=== PATIENT | male | born 1950 | race Caucasian/White ===

== ENCOUNTER 2017-11-25 10:33 | Day surgery (SDC) | payer MEDICARE, OTHER ==
[~2017-11-25 10:33] MED LIST: CEFAZOLIN 2 Gram 2 GM/50 ML BAG IVPB ONE; CELECOXIB 100 MG CAPSULE PO ONE; FAMOTIDINE 20MG TABLET PO ONE; MECLIZINE 25 MG TABLET PO ONE; METOCLOPRAMIDE 10 MG TABLET PO ONE; VANCOMYCIN HCL 1,000 MG in DEXTROSE 5 % IN WATER 250 ML IVPB ONE
[2017-11-25] MEDS ORDERED: MIDAZOLAM HCL 2MG/2ML VIAL IV ONE (10:34)
[2017-11-25] MEDS ORDERED: ROPIVACAINE HCL (NAROPIN) /PF 5MG/ML 20ML VIAL IV ONE ×2 (10:34)
[2017-11-25] MEDS ORDERED: ONDANSETRON HCL IV 4 MG/2 ML VIAL IVP ONE (10:34)
[2017-11-25] MEDS ORDERED: KETOROLAC 30 MG/ML VIAL IVP ONE (10:34)
[2017-11-25] MEDS ORDERED: LIDOCAINE 2% MDV (20MG/ML) 20ML VIAL IV ONE (10:34)
[2017-11-25] MEDS ORDERED: MORPHINE SULFATE 10 MG/ML VIAL IVP ONE (10:34)
[2017-11-25] MEDS ORDERED: TRANEXAMIC ACID 1,000 MG/10 ML ML IV ONE (10:34)
[2017-11-25] MEDS ORDERED: DEXAMETHASONE 4 MG/ML 1ML VIAL IVP ONE ×2 (10:34)
[2017-11-25] MEDS ORDERED: BUPIVACAINE 0.5% W/EPI MPF 30 ML VIAL IVP ONE (10:34)
[2017-11-25] MEDS ORDERED: PROPOFOL 10 MG/ML VIAL IV ONE (10:34)
[2017-11-25 11:32] LABS: ABO GROUP O; ANTIBODY SCREEN NEGATIVE (NEGATIVE); RH TYPE NEGATIVE
[2017-11-25] MEDS ORDERED: ACETAMINOPHEN 325 MG TAB PO PRN (16:25)
[2017-11-25] MEDS ORDERED: HYDROMORPHONE HCL 2 MG/ML VIAL IM PRN (16:25)
[2017-11-25] MEDS ORDERED: KETOROLAC 30 MG/ML VIAL IVP PRN ×2 (16:25)
[2017-11-25] MEDS ORDERED: HYDROCODONE/APAP 10/325 TABLET PO PRN (16:25)
[2017-11-25] MEDS ORDERED: DIPHENHYDRAMINE HCL 25 MG CAPSULE PO PRN (16:25)
[2017-11-25] MEDS ORDERED: TRAMADOL HCL 50 MG TABLET PO PRN (16:25)
[2017-11-25] MEDS ORDERED: ACETAMINOPHEN W/ CODEINE 300MG/60MG TABLET PO PRN ×2 (16:25)
[2017-11-25] MEDS ORDERED: AL HYDROX/MAG HYDROX 30ML UD PO PRN (16:25)
[2017-11-25] MEDS ORDERED: ZOLPIDEM TARTRATE 5 MG TABLET PO PRN (16:25)
[2017-11-25] MEDS ORDERED: MAGNESIUM HYDROXIDE 30 ML UDC PO PRN (16:25)
[2017-11-25] MEDS ORDERED: BISACODYL 10 MG SUPP RC PRN (16:25)
[2017-11-25] MEDS ORDERED: ONDANSETRON HCL IV 4 MG/2 ML VIAL IVP PRN (16:25)
[2017-11-25] MEDS ORDERED: NALOXONE 0.4 MG/1 ML VIAL IVP PRN (16:25)
[2017-11-25] MEDS: HUMULIN R 100 UNIT/ML VIAL SQ SCH (18:04)
[2017-11-25] MEDS: POTASSIUM CHLORIDE/D5-0.9%NACL 20 MEQ/1,000 ML BAG IV SCH ×2 (18:05→19:50)
[2017-11-25] MEDS: NOVOLOG FLEXPEN (INSULIN ASPART) 100 UNITS/ML SQ SCH (18:23)
[2017-11-25] MEDS: HYDROCODONE/APAP 10/325 TABLET PO PRN ×2 (19:54→21:04)
[2017-11-25] MEDS: CEFAZOLIN 2 Gram 2 GM/50 ML BAG IVPB SCH (22:04)
[2017-11-25] MEDS: DOCUSATE SODIUM 100 MG CAPSULE PO SCH (22:08)
[2017-11-25] MEDS: LEVEMIR FLEXTOUCH 100 UNIT/ML INSULIN PEN SQ SCH (22:14)
[2017-11-25] MEDS: PATIENT OWN MED: METFORMIN 1000 MG PO SCH (22:23)
[2017-11-25] MEDS: PATIENT OWN MED: OXYBUTYNIN 5 MG PO SCH (22:23)
[2017-11-25] MEDS: SODIUM CHLORIDE NASAL SPRAY PRN (23:53)
[2017-11-26] MEDS: ALBUTEROL SULFATE (0.083%) 2.5 MG/3 ML NEB INH PRN ×2 (00:54→10:53)
[2017-11-26] MEDS: POTASSIUM CHLORIDE/D5-0.9%NACL 20 MEQ/1,000 ML BAG IV SCH ×2 (04:42→10:05)
[2017-11-26] MEDS: CEFAZOLIN 2 Gram 2 GM/50 ML BAG IVPB SCH ×2 (05:07→13:53)
[2017-11-26] MEDS ORDERED: PATIENT OWN MED: OMEPRAZOLE 20 MG PO SCH (07:00)
[2017-11-26 07:04] LABS: HEMOGLOBIN 10.5 gm/dl (14.0-18.0)
[2017-11-26 07:17] LABS: CREATININE 1.5 mg/dL (0.7-1.2)
[2017-11-26] MEDS: NOVOLOG FLEXPEN (INSULIN ASPART) 100 UNITS/ML SQ SCH ×2 (08:10→13:52)
[2017-11-26] MEDS: HUMULIN R 100 UNIT/ML VIAL SQ SCH ×2 (08:11→13:52)
[2017-11-26] MEDS: LEVEMIR FLEXTOUCH 100 UNIT/ML INSULIN PEN SQ SCH ×2 (08:15→09:58)
[2017-11-26] MEDS: SODIUM CHLORIDE NASAL SPRAY PRN (08:16)
[2017-11-26] MEDS: DOCUSATE SODIUM 100 MG CAPSULE PO SCH (09:56)
[2017-11-26] MEDS: PATIENT OWN MED: METFORMIN 1000 MG PO SCH (09:57)
[2017-11-26] MEDS: PATIENT OWN MED: OXYBUTYNIN 5 MG PO SCH (09:59)
[2017-11-26] MEDS ORDERED: FERROUS SULFATE 325 MG TAB PO SCH (10:00)
[2017-11-26] MEDS ORDERED: DOXAZOSIN 8 MG PO SCH (10:00)
[2017-11-26] MEDS ORDERED: PATIENT OWN MED: LISINOPRIL 20 MG PO SCH (10:00)
[2017-11-26] MEDS ORDERED: POTASSIUM 20 MEQ PO SCH (10:00)
[2017-11-26] MEDS ORDERED: PATIENT OWN MED: SIMVASTATIN 40 MG PO SCH ×2 (10:00→23:00)
[2017-11-26] MEDS ORDERED: PATIENT OWN MED: FUROSEMIDE 40 MG PO SCH (10:00)
[2017-11-26] MEDS ORDERED: PATIENT OWN MED: ATENOLOL 25 MG PO SCH (10:00)
[2017-11-26] MEDS ORDERED: PATIENT OWN MED: FENOFIBRATE 160 MG PO SCH (10:00)
[2017-11-26] MEDS ORDERED: RIVAROXABAN 10 MG TABLET PO SCH (10:00)
--- NOTE | 2017-11-26 10:45 | Rehab Evaluation ---
Patient Information - Patient Information Diagnosis: L knee OA Ordered Treatment: PT Evaluate and Treat Status: Initial Evaluation Surgery: Yes (L TKA) Date of Surgery: 11/25/17 Past Medical/Surgical Hx: PAST MEDICAL/SURGICAL HISTORY Past Surgical History left shoulder replacement 5 yrs ago PMH - Respiratory Hx Respiratory Disorders Yes Hx Pneumonia Yes Hx Sleep Apnea Yes Hx of CPAP Yes PMH - Cardiovascular Hx Cardiovascular Disorders Yes Hx Edema Yes Hx Hypertension Yes: on meds good control Exercise Tolerance Fair Comment: hyperlipidemia PMH - Neuro Hx Neurological Disorders No PMH - GI Hx Gastrointestinal Disorders Yes Hx Gastroesophageal Reflux Yes PMH - Hx Genitourinary Disorders No Comment: pt states no problems but takes meds PMH - Endocrine Hx Endocrine Disorders Yes Hx Diabetes Yes: Dx'd 15 years ago Hx of IDDM Yes Comment: blood sugar 176 this am A1C 7.2 PMH - Musculoskeletal Hx Musculoskeletal Disorders Yes Hx Arthritis Yes PMH - Psych Hx Psychiatric Problems Yes Hx Depression Yes PMH - Hematology/Oncology Hx Hematology/Oncology No Disorders Premorbid Status: Detail (The patient was previously independent with all mobility.) Social History: Detail ( The patient lives in a 2 story house alone. The patient will be living on the [facility] floor. The patient's house has 6 stairs at the enterance. The bathroom is equipped with a tub/shower combination and an elevated toilet, no grab bars are present. The patient has a standard walker and a walker with two wheels.) Precautions: [place], Fall, Other (WBAT on the L LE.) - Time With Patient Total Time Spent With Patient (Min): 25 Treatment Procedures: Detail (Initial Evaluation and gait training.) Subjective Information - Subjective Information Per Patient (The patient had complaints of L knee pain level 3 at the highest.) Objective Data - Mental Status Patient Orientation: Oriented x3 - Visual Perception Appears within normal limits for therapeutic activities - ROM Not within normal limits (The patient's L knee AROM was limited s/p surgery. All other LE AROM was WFL.) - Strength/Tone Not within normal limits (The patient's L LE strength was not tested s/p surgery , however was functional ie: the patient was able to complete a SLR.) - Bed Mobility Independent (The patient was independent with supine to and from sit and scooting up in bed.) - Transfers Independent (The patient was independent with sit to and from stand transfer and toilet transfer.) - Balance Balance Sitting: Good Balance Standing: Good - Sensation Intact - Gait Detail (The patient ambulated with front wheeled walker a distance of 26 feet x 2. Shortness of breath was noted with ambulation, however patient stated this was normal for him. The patient ambulated on 3 steps with supervision for safety using proper technique with a folded walker and one railing.) Therapy Assessment - Therapy Assessment Detail (The patient was independent with bed mobility, transfers and ambulation. All inpatient PT goals have been met.) Patient Education - Patient Education Teaching Topic: Exercise/Activity (The patient completed TKA exercises including seated heel slides, ankle pumps , gluteal sets, quad sets, hamstring sets and SLR. Patient was cued not to hold his breat during exercises.) Response: Return Demonstration Teaching Method: Discussion, Handout Teaching Recipient: Patient Barriers To Learning: Age Related Problem List - Problem List Physical Therapy Problem List: Detail (1) Decrease L knee AROM and L LE strength as to be expected following surgery.) Goals - Goals Physical Therapy Goals: All inpatient goals have been met. Prognosis - Prognosis Good Plan - Plan Physical Therapy Plan: The patient has met all inpatient goals and is to receive Home PT.
--- NOTE | 2017-11-26 15:01 | Rehab Evaluation ---
Patient Information - Patient Information Diagnosis: L knee OA Ordered Treatment: OT Evaluate and Treat Status: Initial Evaluation Surgery: Yes (L TKA) Date of Surgery: 11/25/17 Past Medical/Surgical Hx: PAST MEDICAL/SURGICAL HISTORY Past Surgical History left shoulder replacement 5 yrs ago PMH - Respiratory Hx Respiratory Disorders Yes Hx Pneumonia Yes Hx Sleep Apnea Yes Hx of CPAP Yes PMH - Cardiovascular Hx Cardiovascular Disorders Yes Hx Edema Yes Hx Hypertension Yes: on meds good control Exercise Tolerance Fair Comment: hyperlipidemia PMH - Neuro Hx Neurological Disorders No PMH - GI Hx Gastrointestinal Disorders Yes Hx Gastroesophageal Reflux Yes PMH - Hx Genitourinary Disorders No Comment: pt states no problems but takes meds PMH - Endocrine Hx Endocrine Disorders Yes Hx Diabetes Yes: Dx'd 15 years ago Hx of IDDM Yes Comment: blood sugar 176 this am A1C 7.2 PMH - Musculoskeletal Hx Musculoskeletal Disorders Yes Hx Arthritis Yes PMH - Psych Hx Psychiatric Problems Yes Hx Depression Yes PMH - Hematology/Oncology Hx Hematology/Oncology No Disorders Premorbid Status: Detail (The patient was previously independent with all mobility, meal prep and home mgmt. Pt has a neighbor who assisted with laundry tasks.) Social History: Detail (The patient lives in a 2 story house alone. The patient will be living on the first floor. The patient's house has 6 stairs at the entrance. The bathroom is equipped with a tub/shower combination with a shower seat and an elevated toilet, no grab bars are present. The patient has a standard walker and a walker with two wheels.) Precautions: [place], Fall, Other (WBAT on the L LE.) - Time With Patient Total Time Spent With Patient (Min): 35 Treatment Procedures: Detail (OT eval low complexity) Subjective Information - Subjective Information Per Patient Objective Data - Pain Pain Present: Yes (03/22) - Mental Status Patient Orientation: Oriented x3 - Visual Perception Appears within normal limits for therapeutic activities - ROM Within normal limits (Ariel UE AROM WNL) - Strength/Tone Within normal limits (Ariel UE strength WNL) - Coordination Appears within normal limits for therapeutic activities - Transfers Independent (Ind with sit to stand from EOB) - Balance Balance Sitting: Good Balance Standing: Good - Sensation Intact - ADL's/IADL's Detail (Pt educated re: modified LE dressing technique, he was able to demonstrate doffing of slipper socks and briefs and donning of underwear, shorts and velcro shoes. Pt educated re: KEILA socks, kitchen and shower modifications and safety, he was able to verbalize learning.) Therapy Assessment - Therapy Assessment Detail (Pt is Ind with LE dressing using modified techniques.) Problem List - Problem List Physical Therapy Problem List: Detail (1) Decrease L knee AROM and L LE strength as to be expected following surgery.) Occupational Therapy Problem List: Detail (No current IP OT problems identified. ) Goals - Goals Physical Therapy Goals: All inpatient goals have been met. Occupational Therapy Goals: No current IP OT goals identified. Prognosis - Prognosis Good Plan - Plan Physical Therapy Plan: The patient has met all inpatient goals and is to receive Home PT. Occupational Therapy Plan: No further IP OT recommended. Thank you for this referral.
--- NOTE | 2017-11-28 09:52 | Operative Note ---
DATE: 11/25/2017. PREOPERATIVE DIAGNOSIS: ENDSTAGE ARTHROSIS OF THE LEFT KNEE. POSTOPERATIVE DIAGNOSIS: ENDSTAGE ARTHROSIS OF THE LEFT KNEE. PROCEDURE: Cemented left total knee arthroplasty using [employer]isha II components, with a size 7 Holland chrome femur, a size 7 stemmed tibial baseplate, a 9-mm lipped tibial insert, and a 35-mm, all-plastic patella. STAFF SURGEON: Emigdio De La Torre M.D. ANESTHESIA: Spinal. PREPARATION: ChloraPrep. INDIVIDUAL CONSIDERATIONS: None. PROCEDURE: The patient was taken to the operating room and placed supine on the operating table. He had successful induction of a spinal anesthetic. His left lower extremity was prepped and draped in the usual fashion. The patient had a midline approach to the knee. Sharp dissection was carried down through the skin and subcutaneous tissues. Small veins were coagulated with a Bovie. A medial arthrotomy was performed. The patella was everted and the knee was flexed. He had severe bone loss and arthrosis change medially and also in the patellofemoral compartment. Provisional osteophytes were removed, the anterior cruciate ligament was sacrificed, and provisional anterior meniscectomies were performed. The fat pad was resected. The capsule was released from the medial proximal tibia. The initial femoral barge pilot hole was then made freehand. The intramedullary femoral cutting jig was placed. It was cut in 7.0 degrees of valgus, adjusted for rotation, and secured with pins for a 10 mm resection. The initial transverse cut was then made. Skin guide was placed through the anterior and posterior barge pilot holes. It was found that a size 7 would be appropriate. The anterior and posterior cuts, followed by chamfer cuts, were made. Osteophytes were removed, and a size 7 trial was placed and was found to fit well. The tibia was brought forward and the remainder of the meniscal remnants were removed with a Bovie. The extra-articular tibial cutting jig was placed, and it was cut in neutral with a 3-degree AP slope. Care was taken to adjust for rotation and flexion using the extra-articular alignment guide and bony landmarks. It was set for a 9 mm resection, keyed off the high lateral side, and secured with pins. When cutting the tibia, care was taken to preserve the posterior cruciate ligament insertion on the tibia. Huge medial osteophytes were removed, and even after that I was able to fit a size 7. It was adjusted for rotation and secured with pins. With a size 9 trial and a size 7 femoral trial, there was excellent motion and stability. Ligamentous balance, rotation , and alignment were thought to be normal. The femoral barge pilot holes were then impacted, a tibial keel stamp was impacted, and these trial components were removed. The patient had a very thick patella, and roughly 9 mm was removed freehand, and I could easily fit a 35 patella. Three barge pilot holes were the drilled. The tourniquet was let down briefly to get the bleeders posteriorly and was then placed back up again. The knee was then thoroughly irrigated out with pulsatile Betadine and saline to remove any visual or palpable debris. Bony surfaces were then dried. A size 7 stemmed tibial baseplate was cemented into place, followed by impaction of the 9 mm lipped tibial insert, followed by cementing in the size 7 Holland chrome femur, followed by cementing in the 35-mm patella. Implant surfaces were compressed, and excess cement was removed. After the cement had set, there was excellent motion and stability. Ligamentous balance, rotation, alignment, and patellofemoral tracking were normal, and no lateral release was required. The tourniquet was let down and hemostasis was obtained with a Bovie. Again, thorough irrigation. The capsule was then closed with a running #2 Quill, the subcutaneous layer was closed in multiple layers of #0 Quill, and the skin was closed with bianca. Prior to closure I did infiltrate the skin, periosteum, and subcutaneous layer with 30 mL of 0.5% Marcaine with epinephrine. He had received 1.0 gm of of intravenous tranexamic acid preoperatively. I mixed 1.0 gm of tranexamic acid with 30 mL of saline and injected it into the knee through a sterile 18-gauge needle. A sterile Bulkee compressive Aquacel-type dressing was applied. The patient tolerated the procedure well. Needle and sponge counts were correct. Estimated blood loss was minimal. He was taken back to Recovery in good condition. There were no complications. JOB NUMBER: [id number] [facility]
== END 2017-11-26 14:15 | disposition home health service (06) ==
LOC: SUR 10:33 → MEDSURG 17:14 → SUR 11-26 14:15
PROVIDERS: ATTEND Orthopaedic Surgery
DX: M17.12 Unilateral primary osteoarthritis, left knee (principal); I10 Essential (primary) hypertension; E78.00 Pure hypercholesterolemia, unspecified; E11.9 Type 2 diabetes mellitus without complications; Z79.4 Long term (current) use of insulin; K21.9 Gastro-esophageal reflux disease without esophagitis
CPT/HCPCS: 27447; 01402; 64447; 85018; 85014; 80048; 36416; 82948; 86900; 86901; 86850; 76942; J1885; J2405; J3370; J0690 ×2; J3490 ×3; J1815 ×2; J2795; J2270; G8978; G8979; G8980; G8987; G8988; G8989; C1776; J3480; J7060; J7613